=== PATIENT | male | born 1995 | race Two or more races ===

== ENCOUNTER 2024-02-16 13:29 | Emergency (ER) | payer OTHER ==
[2024-02-16] MEDS: Lidocaine 1% 10 ML MDV INJECT ONE (14:15)
[2024-02-16] MEDS: Diphtheria,Pertussis(Acell),Tetanus Vaccine 0.5 ML Syringe IM ONE (14:35)
== END 2024-02-16 14:55 | disposition home or self-care (01) ==
LOC: JD.ED 13:29
DX: S61.412A Laceration without foreign body of left hand, initial encounter (principal); Z86.16 Personal history of COVID-19; Z88.0 Allergy status to penicillin; Z23 Encounter for immunization; W26.8XXA Contact with other sharp object(s), not elsewhere classified, initial encounter
CPT/HCPCS: 12001; 90471; 90715; 99282-25; 99283; J3490